=== PATIENT | male | born 1990 | race Caucasian/White ===

== ENCOUNTER 2025-02-18 13:38 | Outpatient (CLI) | payer OTHER, SELFPAY ==
--- NOTE | ~2025-02-18 | MR_ITS ---
MRI of the lumbar spine Clinical History: Back pain Technique: Axial T2-weighted images, and sagittal T1-weighted, T2-weighted, and T2 fat-sat images were acquired. Findings: There is no acute fracture or subluxation of the lumbar spine. There is mild chronic compression deformity of L1, with posterior fusion from T12 through L2. No suspicious bone marrow signal abnormality seen. At L1-L2, there is moderate degenerative distended. No disc bulge or herniation. No spinal canal stenosis or neural foraminal narrowing. At L2-L3, there is no disc bulge or herniation. There is mild facet hypertrophy. No spinal canal stenosis or neural foraminal narrowing. L3-L4, there is no disc bulge or herniation. There is moderate facet arthropathy. No central canal stenosis or neural foraminal narrowing. At L4-L5, there is mild disc bulge with moderate facet arthropathy. No central canal stenosis or right neural foraminal narrowing. There is minimal left neural foraminal narrowing. At L5-S1, there is no disc bulge or herniation. No spinal canal stenosis or definite neural foraminal narrowing. Paravertebral soft tissues are unremarkable. Impression: Mild chronic compression deformity of L1 with surrounding posterior fusion from T12 through L2. Minimal degenerative changes, as above. Reviewed, dictated and finalized at [facility]. Impression: Mild chronic compression deformity of L1 with surrounding posterior fusion from T12 through L2. Minimal degenerative changes, as above.
== END 2025-02-18 13:39 | disposition home or self-care (01) ==
DX: M54.50 Low back pain, unspecified (principal); Z98.1 Arthrodesis status
CPT/HCPCS: 72148